=== PATIENT | female | born 1935 | race Caucasian/White ===

== ENCOUNTER → 2017-10-23 | Outpatient (CLI) | payer MEDICARE | LOC: CFH 11:19 | PROVIDERS: ATTEND Internal Medicine Cardiovascular Disease | DX: Z12.31 Encounter for screening mammogram for malignant neoplasm of breast (principal); I08.0 Rheumatic disorders of both mitral and aortic valves; I34.1 Nonrheumatic mitral (valve) prolapse; I42.9 Cardiomyopathy, unspecified | CPT/HCPCS: 93306; 77067 ==

== ENCOUNTER → 2018-06-09 | Outpatient (CLI) | payer MEDICARE | END | disposition home or self-care (01) | LOC: CVU 11:51 | PROVIDERS: ATTEND Internal Medicine Cardiovascular Disease | DX: M41.86 Other forms of scoliosis, lumbar region (principal); M51.36 Other intervertebral disc degeneration, lumbar region; M50.320 Other cervical disc degeneration, mid-cervical region, unspecified level; I08.3 Combined rheumatic disorders of mitral, aortic and tricuspid valves; I50.9 Heart failure, unspecified; E78.5 Hyperlipidemia, unspecified; I42.9 Cardiomyopathy, unspecified; I48.91 Unspecified atrial fibrillation; I95.9 Hypotension, unspecified; Z95.0 Presence of cardiac pacemaker | CPT/HCPCS: 0399T; 72040; 72100; 93306 ==

== ENCOUNTER 2020-09-28 11:00 | Outpatient (CLI) | payer MEDICARE ==
[~2020-09-28 11:00] MED LIST: BRIM10DR15 OP; CARV6.2512 PO; DORZ1DRO7 OP; ESCI10TA10 PO; LATA2.5D4 EACHEYE; RIVA15TA PO; SPIR25TA PO
== END 2020-09-28 23:59 | disposition home or self-care (01) ==
LOC: CVU 11:00
PROVIDERS: ATTEND Internal Medicine Cardiovascular Disease
DX: I08.3 Combined rheumatic disorders of mitral, aortic and tricuspid valves (principal); I48.21 Permanent atrial fibrillation; I42.9 Cardiomyopathy, unspecified
CPT/HCPCS: 93306